=== PATIENT | female | born 1995 | race Hispanic/Latino ===

== ENCOUNTER 2020-05-30 15:11 | Emergency (ER) | payer MEDICARE ==
[~2020-05-30] VITALS: Ht 157.5 cm; Wt 107.0 kg
[2020-05-30] MEDS ORDERED: ONDANSETRON HCL 4 MG ORAL DISINTEGRATING TAB PO ONE (15:45)
[2020-05-30 16:04] LABS: BASOPHILS % 0.3 % (0.0-1.0); EOSINOPHILS # (AUTO) 0.1 (0.0-0.4); EOSINOPHILS % 0.8 % (0.0-6.0); HEMATOCRIT 38.1 % (34.2-44.1); HEMOGLOBIN 12.8 g/dL (12.0-16.0); LYMPHOCYTES # (AUTO) 2.9 (1.0-3.2); LYMPHOCYTES % 26.5 % (18.0-39.1); MEAN CORPUSCULAR HEMOGLOBIN 29.8 pg (28-32); MEAN CORPUSCULAR HGB CONC 33.6 g/dL (31-35); MEAN CORPUSCULAR VOLUME 88.8 fL (81-99); MONOCYTES # (AUTO) 0.9 (0.2-0.8); MONOCYTES % 8.1 % (4.4-11.3); NEUTROPHILS % 63.8 % (38.7-80.0); PLATELET COUNT 291 x10e3/uL (140-360); RED BLOOD COUNT 4.29 x10e6/uL (3.6-5.1)
[2020-05-30 16:06] LABS: CLARITY,URINE CLEAR (CLEAR); COLOR,URINE YELLOW (YELLOW)
[2020-05-30 16:07] LABS: KETONES,URINE NEGATIVE (NEGATIVE); LEUKOCYTE ESTERASE ,URINE NEGATIVE (NEGATIVE); NITRITE,URINE NEGATIVE (NEGATIVE); PROTEIN,URINE DIPSTICK NEGATIVE (NEGATIVE); URINE UROBILINOGEN 0.2 mg/dL (0.2 - 1)
[2020-05-30 16:18] LABS: BACTERIA,URINE MODERATE /HPF; EPITHELIAL CELLS,URINE MODERATE /LPF; TRANSITIONAL EPI CELLS,URINE FEW
[2020-05-30 16:25] LABS: ALANINE AMINOTRANSFERASE 43 IU/L (0-55); ALBUMIN 4.3 g/dL (3.5-5.0); ALBUMIN/GLOBULIN RATIO 1.2 (0.8-2.0); ALKALINE PHOSPHATASE 52 IU/L (40-150); ANION GAP 13.5 mmol/L (8-16); BLOOD UREA NITROGEN 10 mg/dL (7-26); BUN/CREATININE RATIO 15 (6-25); CALCIUM 9.5 mg/dL (8.4-10.2); CARBON DIOXIDE 22 mmol/L (22-29); CHLORIDE 104 mmol/L (98-107); CREATININE, SERUM 0.68 mg/dL (0.57-1.11); EST GLOMERULAR FILTRATION RATE > 60 ML/MIN (60-); GLUCOSE 89 mg/dL (74-118); POTASSIUM 3.5 mmol/L (3.5-5.1); SODIUM 136 mmol/L (136-145)
[2020-05-30] MEDS ORDERED: ZUPLENZ4 MG PO (16:52)
[2020-05-30] MEDS ORDERED: KEFLEX500 MG PO (16:52)
== END 2020-05-30 18:23 | disposition home or self-care (01) ==
LOC: ER 15:45
DX: O21.9 Vomiting of pregnancy, unspecified (principal); Z3A.01 Less than 8 weeks gestation of pregnancy; R50.9 Fever, unspecified; R10.2 Pelvic and perineal pain
CPT/HCPCS: 36415; 76817; 80053; 81001; 84702; 85025; 99284; Q0162

== ENCOUNTER 2021-05-10 14:47 | Emergency (ER) | payer SELFPAY ==
[~2021-05-10] VITALS: Ht 157.5 cm; Wt 107.0 kg
[~2021-05-10 14:47] MED LIST: KEFLEX500 MG PO; ZUPLENZ4 MG PO
[2021-05-10] MEDS ORDERED: ACETAMINOPHEN 325 MG TAB PO ONE (16:00)
[2021-05-10] MEDS ORDERED: CASIRIVIMAB/IMDEVIMAB 10 ML in SODIUM CHLORIDE 0.9% 100 ML IV ONE ×4 (16:15)
[2021-05-10] MEDS ORDERED: BENZONATATE200 MG PO (16:20)
[2021-05-10] MEDS ORDERED: PROAIR HFA INH8.5 GM IH (16:20)
[2021-05-10 16:54] VITALS: BP 125/87
== END 2021-05-10 16:55 | disposition home or self-care (01) ==
LOC: ER 14:56
DX: U07.1 COVID-19 (principal); R05.9 Cough, unspecified
CPT/HCPCS: 71045; 99282; J7050; U0002

== ENCOUNTER 2023-12-19 19:47 | Emergency (ER) | payer OTHER ==
[~2023-12-19] VITALS: Ht 157.5 cm; Wt 96.2 kg
[~2023-12-19 19:47] MED LIST changes: +ACETAMINOPHEN-1 EAC4 PO; +BACTRIM DS TAB1 EACH PO; +BENZONATATE200 MG PO; +CEPHALEXIN500 M1 PO; +CEPHALEXIN500 MG PO; +ONDANSETRON ODT4 MG PO; +PROAIR HFA INH8.5 GM IH; +ULTRAM 50MG50 MG PO
[2023-12-19] MEDS ORDERED: ACETAMINOPHEN-1 EAC4 PO (22:05)
[2023-12-19] MEDS ORDERED: DOXYCYCLINE HY100 MG PO (22:05)
[2023-12-19] MEDS: KETOROLAC TROMETHAMINE 60 MG/2 ML VIAL IM ONE (22:35)
[2023-12-19] MEDS: ACETAMINOPHEN/CODEINE 300MG - 30MG TAB PO ONE (22:35)
[2023-12-19 22:39] VITALS: PULSE 60; RESP 16; TEMP 98.6; O2SAT 99
== END 2023-12-19 22:41 | disposition home or self-care (01) ==
LOC: ER 19:52
DX: R50.9 Fever, unspecified (principal); N75.0 Cyst of Bartholin's gland; Z98.84 Bariatric surgery status
CPT/HCPCS: 99283; J1885

== ENCOUNTER 2024-04-30 21:42 | Emergency (ER) | payer OTHER ==
[~2024-04-30] VITALS: Ht 157.5 cm; Wt 113.4 kg
[~2024-04-30 21:42] MED LIST changes: +DOXYCYCLINE HY100 MG PO
[2024-04-30 22:00] VITALS: PULSE 91; RESP 20; TEMP 98.5
[2024-04-30 22:31] LABS: BASOPHILS % 0.2 % (0.0-1.0); EOSINOPHILS # (AUTO) 0.3 (0.0-0.4); EOSINOPHILS % 2.6 % (0.0-6.0); HEMATOCRIT 41.5 % (34.2-44.1); HEMOGLOBIN 13.2 g/dL (12.0-16.0); LYMPHOCYTES # (AUTO) 1.9 (1.0-3.2); LYMPHOCYTES % 17.6 % (18.0-39.1); MEAN CORPUSCULAR HEMOGLOBIN 30.3 pg (28-32); MEAN CORPUSCULAR HGB CONC 31.8 g/dL (31-35); MEAN CORPUSCULAR VOLUME 95.4 fL (81-99); MONOCYTES # (AUTO) 0.8 (0.2-0.8); MONOCYTES % 7.1 % (4.4-11.3); NEUTROPHILS # (AUTO) 7.7 (2.1-6.9); NEUTROPHILS % 72.1 % (38.7-80.0); PLATELET COUNT 375 x10e3/uL (140-360); RED BLOOD COUNT 4.35 x10e6/uL (3.6-5.1); RED CELL DISTRIBUTION WIDTH 12.4 % (11.7-14.4); WHITE BLOOD COUNT 10.63 x10e3/uL (4.8-10.8)
[2024-04-30] MEDS: Morphine 4mg INJECTION 4 MG/ML INJ IV STA (22:31)
[2024-04-30] MEDS: SODIUM CHLORIDE 0.9% 1000ML 1,000 ML IV STA (22:32)
[2024-04-30] MEDS: ONDANSETRON HCL INJ 2MG/ML 2ML 2 MG/ML VIAL IV STA (22:32)
[2024-04-30 22:43] LABS: ALBUMIN 4.4 g/dL (3.5-5.0); ALBUMIN/GLOBULIN RATIO 1.2 (0.8-2.0); ANION GAP 16.5 mmol/L (8-16); BILIRUBIN,TOTAL 0.5 mg/dL (0.2-1.2); CALCIUM 9.8 mg/dL (8.4-10.2); CREATININE, SERUM 0.74 mg/dL (0.57-1.11); POTASSIUM 3.5 mmol/L (3.5-5.1); TOTAL PROTEIN 8.2 g/dL (6.5-8.1)
[2024-04-30 22:46] LABS: CLARITY,URINE CLEAR (CLEAR); COLOR,URINE YELLOW (YELLOW); PH,URINE 7 (5 - 7)
[2024-04-30 22:47] LABS: BILIRUBIN,URINE NEGATIVE (NEGATIVE); GLUCOSE, URINE NEGATIVE (NEGATIVE); KETONES,URINE >=160 (NEGATIVE); LEUKOCYTE ESTERASE ,URINE NEGATIVE (NEGATIVE); NITRITE,URINE NEGATIVE (NEGATIVE); PREGNANCY TEST, URINE NEGATIVE (NEGATIVE); PROTEIN,URINE DIPSTICK NEGATIVE (NEGATIVE); URINE UROBILINOGEN 1 mg/dL (0.2 - 1)
[2024-04-30 23:02] LABS: BACTERIA,URINE MANY /HPF; EPITHELIAL CELLS,URINE MODERATE /LPF
[2024-04-30] MEDS ORDERED: IOPAMIDOL 370 MG/ML 100 ML INFUS..BTL INJ ONE (23:03)
[2024-05-01] MEDS: KETOROLAC TROMETHAMINE 30 MG/ML VIAL IV STA (00:39)
[2024-05-01] MEDS ORDERED: AMOX TR-K CLV1 EAC2 PO (05:19)
[2024-05-01 05:50] VITALS: BP 106/69; O2SAT 99
== END 2024-05-01 05:47 | disposition home or self-care (01) ==
LOC: ER 21:48
DX: R06.02 Shortness of breath (principal); R10.11 Right upper quadrant pain; R11.2 Nausea with vomiting, unspecified; Z98.84 Bariatric surgery status
CPT/HCPCS: 36415; 71260; 74177; 76705; 76830; 76856; 80053; 81001; 81025; 83690; 85025; 99284; J1885; J2270; J2405; J7030; Q9967